=== PATIENT | male | born 1995 | race Caucasian/White ===

== ENCOUNTER 2016-04-22 21:33 | Emergency (ER) | payer OTHER ==
[2016-04-23] VITALS: BP 125/59
[2016-04-23] MEDS ORDERED: Ondansetron INJ* 2 MG/ML VIAL IV ONE (01:08)
[2016-04-23] MEDS ORDERED: NS 0.9% 1000 ML* 2,000 ML IV ONE (01:08)
[2016-04-23] MEDS ORDERED: Ketorolac INJ* 30 MG/ML 1 ML VIAL IV ONE (01:08)
--- NOTE | 2016-04-23 01:46 | ED ---
Influenza-Like Illness - HPI Summary HPI Summary: Patient presents with nausea, vomiting and diarrhea for two days. He did not eat any new or different foods. He has felt feverish, with body aches, and fatigue. He has been around other people who have the flu. He is able to keep fluids down, but food goes "right through him". He denies FERREIRA, neck pain, back pain, SOB, or CP. He does have mild abdominal pain. - History of Current Complaint Chief Complaint: EDFluSymptoms Time Seen by Provider: 04/23/16 01:01 Hx Obtained From: Patient, Family/Vending Machine Servicer Onset/Duration: Gradual Onset Severity: Severe Associated Signs & Symptoms: Myalgia, Vomiting, Diarrhea Related Hx: Possible Flu/Infectious Exposure - Allergy/Home Medications Allergies/Adverse Reactions: Allergies Allergy/AdvReac Type Severity Reaction Status Date / Time [place] Allergy Intermediate Rash Unverified 04/23/16 02:11 PMH/Surg Hx/FS Hx/Imm Hx Endocrine/Hematology History: Reports: Hx Diabetes - Type 2 Denies: Hx Thyroid Disease Cardiovascular History: Denies: Hx Hypertension Respiratory History: Denies: Hx Asthma, Hx Chronic Obstructive Pulmonary Disease (COPD) GI History: Denies: Hx Ulcer - Surgical History Surgery Procedure, Year, and Place: tonsillectomy Infectious Disease History: No Infectious Disease History: Denies: Hx Hepatitis, Hx Human Immunodeficiency Virus (HIV), History Other Infectious Disease, Traveled Outside the [place] in Last 30 Days - Family History Known Family History: Positive: None - pt is adopted and does not know about his medical history - Social History Occupation: Employed Full-time Lives: With Family Alcohol Use: None Hx Substance Use: No Substance Use Type: Reports: None Hx Tobacco Use: No Smoking Status (MU): Never Smoked Tobacco Review of Systems Positive: Chills, Fatigue. Negative: Fever Negative: Sore Throat, Ear Ache, Nasal Discharge Negative: Chest Pain Negative: Shortness Of Breath Positive: Abdominal Pain - mild diffuse, Vomiting, Diarrhea, Nausea Positive: Myalgia Negative: Rash Negative: Headache, Weakness, Paresthesia, Numbness All Other Systems Reviewed And Are Negative: Yes Physical Exam Triage Information Reviewed: Yes Vital Signs On Initial Exam: Initial Vitals Temp Pulse Resp BP Pulse Ox 99.1 F 91 20 146/59 96 04/22/16 21:36 04/22/16 21:36 04/22/16 21:36 04/22/16 21:36 04/22/16 21:36 Vital Signs Reviewed: Yes Appearance: Positive: Well-Appearing, Pain Distress - patient appears flushed and uncomfortable, Obese Skin: Positive: Warm, Skin Color Reflects Adequate Perfusion, Dry, Soft Head/Face: Positive: Normal Head/Face Inspection Eyes: Positive: EOMI, CARLOS, Conjunctiva Clear ENT: Positive: Hearing grossly normal, Pharynx normal, TMs normal Neck: Positive: Supple, Nontender, No Lymphadenopathy Respiratory/Lung Sounds: Positive: Clear to Auscultation, Breath Sounds Present Cardiovascular: Positive: RRR Abdomen Description: Positive: Soft. Negative: Nontender - mild diffuse tenderness to palpation, CVA Tenderness (R), CVA Tenderness (L), Distended, Guarding, Hepatomegaly, McBurney's Point Tenderness, Peritoneal Signs, Splenomegaly Bowel Sounds: Positive: Present Musculoskeletal: Positive: Strength/ROM Intact. Negative: Edema Left, Edema Right Neurological: Positive: Sensory/Motor Intact, Alert, Oriented to Person Place, Time, NV Bundle Intact Distally Psychiatric: Positive: Affect/Mood Appropriate AVPU Assessment: Alert Diagnostics - Vital Signs Vital Signs Temp Pulse Resp BP Pulse Ox 04/22/16 23:59 98.7 F 89 24 125/59 96 04/22/16 23:12 98.6 F 86 18 144/63 97 04/22/16 21:36 99.1 F 91 20 146/59 96 - Laboratory Lab Results: Lab Results 04/22/16 Range/Units 23:51 Influenza A (Rapid) Negative (Negative) Influenza B (Rapid) Negative (Negative) Result Diagrams: 04/23/16 02:00 04/23/16 02:00 Lab Statement: Any lab studies that have been ordered have been reviewed, and results considered in the medical decision making process. Flu Symptom Course/Dx - Diagnoses Differential Diagnosis/HQI/PQRI: Positive: Bronchitis, Broncholiolitis, Influenza, Pneumonia, RSV, Upper Respiratory Infection Provider Diagnoses: Viral syndrome - Physician Notifications Discussed Care Of Patient With: Dr. Zheng, emergency department attending Time Discussed With Above Provider: 02:00 - Patient signed out to Dr. Zheng at 0200 Discharge - Discharge Plan Condition: Stable Disposition: HOME Patient Education Materials: Viral Syndrome (ED) Referrals: Jovan García MD [Primary Care Provider] - 3 Days (Follow up with your PCP within the next 3 days. )
[2016-04-23 02:11] LABS: Hematocrit 45 % (42-52); Hemoglobin 15.1 g/dl (14.0-18.0); Mean Corpuscular HGB Conc 34 g/dl (31-36); Mean Corpuscular Hemoglobin 28 pg (27-31); Mean Corpuscular Volume 83 fL (80-94); Mean Platelet Volume 8 um3 (7.4-10.4); Red Blood Count 5.43 10^6/ul (4.0-5.4); Red Cell Distribution Width 14 % (10.5-15)
[2016-04-23 02:26] LABS: ALT 11 U/L (7-52); AST 13 U/L (13-39); Albumin 4.3 g/dL (3.2-5.2); Alkaline Phosphatase 49 U/L (34-104); Amylase 17 U/L (29-103); Anion Gap 8 mmol/L (2-11); BUN/Creatinine Ratio 18.3 (8-20); Blood Urea Nitrogen 20 mg/dL (6-24); C Reactive Protein 43.86 mg/L (< 5.00); CO2 Carbon Dioxide 26 mmol/L (22-32); Calcium 9.2 mg/dL (8.6-10.3); Chloride 101 mmol/L (101-111); EGFR African American 108.8 (>60); EGFR Non-African American 84.6 (>60); Globulin 2.4 g/dL (2-4); Glucose 107 mg/dL (70-100); Lipase < 10 U/L (11.0-82.0); Potassium 3.5 mmol/L (3.5-5.0); Sodium 135 mmol/L (133-145); Total Protein 6.7 g/dL (6.4-8.9)
== END 2016-04-23 03:05 | disposition home or self-care (01) ==
LOC: ED 21:33
DX: B34.9 Viral infection, unspecified (principal); R11.2 Nausea with vomiting, unspecified; R19.7 Diarrhea, unspecified; R53.83 Other fatigue
CPT/HCPCS: 36415; 80053; 82150; 83690; 85025; 86140; 87502; 96374; 96375; 99282; J1885; J2405

== ENCOUNTER 2018-03-20 09:49 | Emergency (ER) | payer OTHER ==
[2018-03-20 10:07] VITALS: BP 151/79
--- NOTE | 2018-03-20 10:50 | UC ---
Complaint Male HPI - HPI Summary HPI Summary: Intermittent low back pain/flank pain, left worse than right, for the past one week. Had some nausea this morning and vomited twice. Nausea is now resolved. Has not taken any ibuprofen to see if this helps with his discomfort. Does take a workout supplement daily. Unknown family history as patient is adopted. - History of Current Complaint Chief Complaint: UCBackPain Stated Complaint: LOWER BACK PAIN NAUSEA Time Seen by Provider: 03/20/18 10:11 Hx Obtained From: Patient Onset/Duration: Sudden Onset, Still Present Timing: Intermittent Severity Initially: Moderate Severity Currently: Moderate Pain Intensity: 4 Pain Scale Used: 0-10 Numeric Location: Flank Character: Colicy Aggravating Factor(s): Nothing Alleviating Factor(s): Nothing Associated Signs And Symptoms: Positive: Back Pain, Nausea, Vomiting(# Of Episodes =). Negative: Diaphoresis, Fever, Hematuria, Dysuria, Blood in Stool, Penile Discharge - Allergies/Home Medications Allergies/Adverse Reactions: Allergies Allergy/AdvReac Type Severity Reaction Status Date / Time strawberry Allergy Rash Verified 03/20/18 10:07 Home Medications: Home Medications NK [No Home Medications Reported] 03/20/18 [History Confirmed 03/20/18] PMH/Surg Hx/FS Hx/Imm Hx Endocrine History: Diabetes - Surgical History Surgical History: Yes Surgery Procedure, Year, and Place: tonsillectomy - Family History Known Family History: Positive: Unknown - PT ADOPTED - Social History Alcohol Use: Occasionally Substance Use Type: None Smoking Status (MU): Never Smoked Tobacco Review of Systems All Other Systems Reviewed And Are Negative: Yes Constitutional: Positive: Negative Skin: Positive: Negative Respiratory: Positive: Negative Cardiovascular: Positive: Negative Gastrointestinal: Positive: Vomiting, Nausea Genitourinary: Positive: Negative Physical Exam Triage Information Reviewed: Yes Appearance: Well-Appearing, Well-Nourished, Pain Distress - APPEARS TO BE IN MILD DISCOMFORT Vital Signs: Initial Vital Signs Temp 98.6 F 03/20/18 10:02 Pulse 83 03/20/18 10:02 Resp 16 03/20/18 10:02 BP 151/79 03/20/18 10:02 Pulse Ox 98 03/20/18 10:02 Laboratory Tests 03/20/18 10:15 POC Urine Color Omayra POC Urine Clarity Clear POC Urine pH 6.5 POC Ur Specif Daniels 1.025 POC Urine Protein 1+ A POC Ur Glucose (UA) Negative POC Urine Ketones Negative POC Urine Blood Trace-intact A POC Urine Nitrite Negative POC Urine Bilirubin Negative POC Urine Urobilinogen 0.2 POC U Leukocyte Esteras Negative Vital Signs Reviewed: Yes Eyes: Positive: Conjunctiva Clear ENT: Positive: Hearing grossly normal Neck: Positive: Supple Respiratory Exam: Normal Cardiovascular Exam: Normal Abdomen Description: Positive: Nontender, Soft, CVA Tenderness (L) - EQUIVOCAL. Negative: CVA Tenderness (R), Distended, Guarding Musculoskeletal: Positive: No Edema Neurological: Positive: Alert Psychological: Positive: Age Appropriate Behavior Skin: Negative: Rashes Diagnostics - Radiology CT ABD/PELVIS W/O CNTRAST Radiology Interpretation Completed By: Radiologist Summary of Radiographic Findings: UNREMARKABLE Complaint Male Course/Dx - Differential Dx/Diagnosis Provider Diagnosis: Muscle strain, Hematuria Discharge - Sign-Out/Discharge Documenting (check all that apply): Patient Departure All imaging exams completed and their final reports reviewed: Yes - Discharge Plan Condition: Stable Disposition: HOME Patient Education Materials: Muscle Strain (ED), Hematuria (ED) Referrals: Jovan García MD [Primary Care Provider] - 2 Weeks Additional Instructions: YOUR URINE HAD A TRACE AMOUNT OF BLOOD IN IT. BE SURE TO STAY WELL-HYDRATED AND FOLLOW-UP WITH YOUR PCP IN A COUPLE OF WEEKS FOR REEVALUATION TO ENSURE THIS CLEARS. YOUR CT SCAN TODAY DID NOT SHOW ANY CAUSE FOR YOUR FLANK PAIN. CONSIDER MUSCULOSKELETAL STRAIN. USE OTC IBUPROFEN, HEAT, MASSAGE AND REST TO SEE IF YOUR SYMPTOMS IMPROVE. GO TO THE ED WITHOUT FAIL IF YOU DEVELOP WORSENING PAIN, NAUSEA, FEVER OR ANY OTHER CONCERNING SYMPTOMS. - Billing Disposition and Condition Condition: STABLE Disposition: Home
== END 2018-03-20 11:56 | disposition home or self-care (01) ==
LOC: UCEAST 09:49
DX: S39.012A Strain of muscle, fascia and tendon of lower back, initial encounter (principal); X58.XXXA Exposure to other specified factors, initial encounter; Y92.9 Unspecified place or not applicable; R31.9 Hematuria, unspecified; E11.9 Type 2 diabetes mellitus without complications
CPT/HCPCS: 74176; 81003; 99211; G0463